=== PATIENT | female | born 1990 | race Caucasian/White ===

== ENCOUNTER 2017-10-19 23:13 | Emergency (ER) | payer MEDICAID ==
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
[2017-10-20 00:49] VITALS: BP 128/83; PULSE 98; RESP 18; TEMP 97.9; O2SAT 100
--- NOTE | 2017-10-20 00:55 | C.PDOC ---
History Of Present Illness 26 year old female, 8 months presents to the ED requesting a place to stay because she is currently homeless. Patient's cervix was dilated 2 cm. Patient was cleared by the OB and referred to a correction that she refused to got to. Patient denies any physical complaints at this time. Time Seen by Provider: 10/20/17 00:55 Chief Complaint (Nursing): Medical Clearance History Per: Patient History/Exam Limitations: no limitations Onset/Duration Of Symptoms: Days Current Symptoms Are (Timing): Still Present Severity: None Reports Recently: Seen In ED, Treated By A Physician Recent travel outside of the [place]: No Additional History Per: Patient Past Medical History Reviewed: Historical Data, Nursing Documentation, Vital Signs Vital Signs: Last Vital Signs Temp 97.9 F 10/20/17 00:44 Pulse 98 H 10/20/17 00:44 Resp 18 10/20/17 00:44 BP 128/83 10/20/17 00:44 Pulse Ox 100 10/20/17 01:12 - Medical History PMH: Anxiety, Depression Denies: Chronic Kidney Disease Surgical History: No Surg Hx Family History: States: No Known Family Hx - Social History Hx Alcohol Use: No Hx Substance Use: No - Immunization History Hx Tetanus Toxoid Vaccination: No Hx Influenza Vaccination: Yes Hx Pneumococcal Vaccination: No Review Of Systems Constitutional: Negative for: Fever, Chills Cardiovascular: Negative for: Chest Pain Respiratory: Negative for: Shortness of Breath Gastrointestinal: Negative for: Abdominal Pain Genitourinary: Negative for: Dysuria Skin: Negative for: Rash Neurological: Negative for: Weakness, Numbness Psych: Negative for: Anxiety Physical Exam - Physical Exam Appears: Non-toxic, No Acute Distress Skin: Warm, Dry Head: Normacephalic Eye(s): bilateral: Normal Inspection Nose: No Discharge Oral Mucosa: Moist Neck: Normal ROM, Supple Chest: Symmetrical Cardiovascular: Rhythm Regular, No Murmur Respiratory: No Rales, No Rhonchi, No Wheezing Gastrointestinal/Abdominal: Soft, No Tenderness, No Guarding, No Rebound, Other (gravid) Extremity: Normal ROM, No Tenderness, No Swelling Neurological/Psych: Oriented x3 Gait: Steady ED Course And Treatment O2 Sat by Pulse Oximetry: 100 (ON RA) Pulse Ox Interpretation: Normal Progress Note: went to re-eval the pt but pt had eloped Disposition Counseled Patient/Family Regarding: Studies Performed, Diagnosis, Need For Followup - Disposition Referrals: [facility] [Outside] [facility] [Outside] Disposition: ELOPEMENT - ER ONLY Disposition Time: 00:55 Condition: FAIR Forms: [facility] (Stateless), General Discharge Instructions - Clinical Impression Clinical Impression: , Homeless - Scribe Statement The provider has reviewed the documentation as recorded by the Scribe Justino Anderson All medical record entries made by the Kimberibpenny were at my direction and personally dictated by me. I have reviewed the chart and agree that the record accurately reflects my personal performance of the history, physical exam, medical decision making, and the department course for this patient. I have also personally directed, reviewed, and agree with the discharge instructions and disposition.
== END 2017-10-20 01:30 | disposition left against medical advice (07) ==
LOC: C.EROB 23:13 → C.ER 23:13
DX: O26.93 Pregnancy related conditions, unspecified, third trimester (principal); Z3A.38 38 weeks gestation of pregnancy; Z59.0 Homelessness